=== PATIENT | male | born 1995 | race Caucasian/White ===

== ENCOUNTER 2022-12-27 04:44 | Emergency (ER) | payer BC, MEDICAID, OTHER ==
[2022-12-27] MEDS ORDERED: Alum Hydrox/Mag Hydrox/Simeth 30 ML, Lidocaine 2% 15 ML PO ONE ×2 (06:16)
[2022-12-27] MEDS ORDERED: Famotidine 20 MG Tab PO STA (08:31)
== END 2022-12-27 08:47 | disposition home or self-care (01) ==
LOC: JD.ED 04:44
DX: R10.13 Epigastric pain (principal); Z72.0 Tobacco use
CPT/HCPCS: 36415; 80053; 81001; 83690; 85025; 87086; 99284; A9270